=== PATIENT | male | born 1945 | race Caucasian/White ===

== ENCOUNTER 2019-10-07 16:09 | Outpatient (CLI) | payer MEDICARE, OTHER, SELFPAY | END 2019-10-07 16:10 | disposition home or self-care (01) | LOC: CHSLAB 16:15 | PROVIDERS: PCP Family Medicine; Visit Provider Specialist | DX: C44.02 Squamous cell carcinoma of skin of lip (principal) | CPT/HCPCS: 88305 ==

== ENCOUNTER 2019-11-18 12:39 | Outpatient (CLI) | payer MEDICARE, OTHER, SELFPAY | END 2019-11-18 12:40 | disposition home or self-care (01) | PROVIDERS: PCP Family Medicine; Visit Provider Specialist | DX: D03.59 Melanoma in situ of other part of trunk (principal) | CPT/HCPCS: 88305; 88342 ==

== ENCOUNTER 2020-10-22 20:02 | Emergency (ER) | payer MEDICARE, OTHER, SELFPAY ==
--- NOTE | ~2020-10-22 | CT_ITS ---
EXAMINATION: CT abdomen pelvis wo con DATE: 10/22/2020 21:36 INDICATION: Jaundice, abdominal distention TECHNIQUE: Computed tomography (CT) of the abdomen and pelvis was performed without intravenous contr ast. The dose-length product (DLP) was 1194.38 mGy-cm. Automated exposure control and iterative recon struction technique were employed. COMPARISON: None FINDINGS: There are trace pleural effusions. Rounded atelectasis is noted in the left lower lobe. The heart size is normal. There is bilateral gynecomastia. The liver is small and demonstrates a nodular contour. Although limited by the absence of intravenous contrast, there appears to be a mass in the head of the pancreas. There is intrahepatic and extrahepatic biliary dilatation. There is marked dist ention of the gallbladder. Cholelithiasis is noted although no choledocholithiasis is seen. There is a 3.4 cm subcapsular lesion in liver segment VIII with peripheral calcification. There is a questiona ble 1.2 cm nodule of the right adrenal gland. Nonobstructing stones of the right kidney measure up to 9 mm. Nonobstructing stones of the left kidney measure up to 10 mm. No pathologically enlarged abdom inal or pelvic lymph nodes are identified. There is an umbilical hernia containing fat. There are com pression fractures of T11, L3, and L5. IMPRESSION: 1. Possible mass in the head of the pancreas with intrahepatic and extrahepatic biliary dilatation as well as gallbladder distention. Evaluation is limited by the absence of intravenous contrast. 2. Cirrhosis with portal hypertension. 3. Indeterminate mass of liver segment VIII which may be benign or malignant. 4. Nonobstructing bilateral nephrolithiasis. Reviewed, dictated and finalized at location A.
[2020-10-22 20:23] VITALS: BP 138/80; PULSE 67; RESP 16; TEMP 36.3; O2SAT 98
--- NOTE | 2020-10-22 20:56 | ECG_ITS ---
Measurements Intervals [place] Rate: 62 P: -16 DE: 205 QRS: -10 QRSD: 96 T: 18 QT: 410 QTc: 419 Interpretive Statements SINUS RHYTHM ATRIAL PREMATURE COMPLEX INCOMPLETE RIGHT BUNDLE BRANCH BLOCK BORDERLINE ECG Electronically Signed On 10-23-2020 5:56:17 CDT by Bruce Quezada D.O.
--- NOTE | 2020-10-22 21:07 | ED.ABDPAIN ---
HPI - Abdominal Pain General Chief Complaint: Abdominal Pain Stated Complaint: yellowing in eyes, yellowing onstomach,orange urin Source: patient and family Mode of arrival: ambulatory Limitations: no limitations History of Present Illness HPI narrative: Pt presents to the ED with complaints of yellowing of eyes and skin. Pt had a long history of etoh abuse. ABout 10 years ago he was using very heavily, but quit after being in liver failure. He was clean for about 5 years. Then he started to gradually drink a couple of drinks a night. Then in fall his committed suicide and he began to drink heavily again. About a week ago he mnoticed that his skin and eyes were turning yellow. He had his last drink a week ago but the yellowing is persistantly gettting worse. He is not having any pain at all, but is concerned due to his color. Over the last 1 year he has lsot over 80 lbs. He denies blood in stools or vomiting. HE is eating ok, but not exceptional. Pertinent past history: none Location: none Radiation: none Migration to: no migration Exacerbating factors: nothing Relieving factors: nothing Context: confirms history of similar episodes Associated symptoms: nausea Related Data Home Medications Medication Instructions Recorded Confirmed folic acid 1 mg PO DAILY 10/22/20 10/22/20 nadolol 40 mg PO DAILY 10/22/20 10/22/20 spironolactone 100 mg PO DAILY 10/22/20 10/22/20 Allergies Allergy/AdvReac Type Severity Reaction Status Date / Time No Known Allergies Allergy Verified 10/22/20 20:23 Review of Systems Review of Systems: All systems reviewed & are unremarkable except as noted in HPI and below [facility] Past Medical History Medical History Femur fracture HTN (hypertension) Liver failure Social History Social History (Updated 10/22/20 @ 21:16 by Cecilia Hurt MD) Smoking status: Never smoker Alcohol intake: former Alcohol use details: see HPI- currently not drinking for 1 week Substance use: never Living arrangements: alone Gender identity (if verbalized by the patient): Male Exam Const: General: no acute distress, alert and ill appearing (jaundice in eyes, and on skin obvious. ) Orientation/consciousness: patient oriented x3 HENMT: Mouth: Yes moist mucous membranes Throat: posterior oropharynx normal Eyes: Conjunctivae: abnormal conjunctivae (jaundiced) Pupils: Equal, round and reactive pupils present EOM: EOMs intact bilaterally Neck: Neck: normal visual inspection Chest: Chest palpation & inspection: normal inspection of the chest Resp: Effort & Inspection: normal respiratory effort Auscultation: clear to auscultation bilaterally Cardio: Rate: regular rate Rhythm: regular rhythm GI: GI Palp: Yes Soft to palpation, No Tenderness to palpation present (GI), No Guarding due to palpation present (GI), No Rigid due to palpation, No Hernia present, No Palpable mass present and No Rebound tenderness present Auscultation: normal bowel sounds Other: liver enlargement Back/Spine/Pelvis: Back: no CVA tenderness Skin: General skin exam: jaundice Neuro: General: patient oriented x3, moves all extremities and CN's II-XI intact bilaterally Speech: normal speech Gait exam (Neuro): Normal gait present Other: pt is in normal state of mind Extrem: General: normal to inspection Psych: Mental Status: mental status grossly normal Course Course Emergency Course: patient and family informed of ct findings, and they requested [facility]. I have placed call and was told that there is a waitlist at this time. family aware, Dr Lackey accepts patient. on a bed hold, so we will move pt to floor for comfort Vital Signs Vital signs: Vital Signs Temperature 36.3 C L 10/22/20 20:23 Pulse Rate 67 10/22/20 20:23 Respiratory Rate 16 10/22/20 20:23 Blood Pressure 138/80 10/22/20 20:23 Pulse Oximetry 98
[2020-10-22 21:18] LABS: Basophils Absolute Auto 0.04 K/mm3 (0.00-0.10); Basophils Percent Auto 0.5 % (0.0-1.0); Eosinophils Absolute Auto 0.07 K/mm3 (0.02-0.50); Eosinophils Percent Auto 0.9 % (1.0-6.0); Hematocrit 38.3 % (37.0-46.0); Hemoglobin 13.4 g/dL (12.4-15.3); Immature Granulocyte Absolute 0.05 K/mm3 (0.00-0.00); Immature Granulocyte Percent A 0.6 % (0.0-0.0); Lymphocytes Absolute Auto 0.72 K/mm3 (1.10-4.50); Mean Corpuscular Hemoglobin 33.1 pg (27.0-31.0); Mean Corpuscular Volume 94.6 fL (78.0-102.0); Mean Platelet Volume 10.2 fl (8.7-11.0); Monocytes Absolute Auto 0.97 K/mm3 (0.10-0.90); Monocytes Percent Auto 12.1 % (2.0-11.0); Neutrophils Absolute Auto 6.2 K/mm3 (1.7-7.2); Neutrophils Percent Auto 76.9 % (50.0-70.0); Platelet Count Result 164 K/mm3 (150-420); Red Blood Count 4.05 M/mm3 (4.70-6.10); Red Cell Distribution Width 13.7 % (11.6-14.4)
[2020-10-22 21:32] LABS: INR 1.3; Partial Thromboplastin Time 27.2 SEC (23.90-30.70); Prothrombin Time 13.5 Seconds (9.50-12.10)
[2020-10-22 21:37] LABS: Alanine Aminotransferase 124 U/L (16-63); Albumin Level 3.2 g/dL (3.4-5.0); Alkaline Phosphatase 225 U/L (46-116); Anion Gap 11 mmol/L (8-16); Aspartate Amino Transferase 97 U/L (15-37); Bilirubin,Total 23.3 mg/dL (0.00-1.00); Blood Urea Nitrogen 24 mg/dL (7-18); Calcium 10.1 mg/dL (8.5-10.1); Carbon Dioxide 23 mmol/L (21-32); Chloride 97 mmol/L (98-108); Estimated CRCL calculation 77 ml/min; Estimated Glomerular Filt Rate > 60; Glucose 155 mg/dL (70-99); Lipase 117 U/L (73-393); Osmolality Calculated 279 mOsm/kg (285-295); Potassium 4.3 mmol/L (3.5-5.1); Sodium 131 mmol/L (136-145); Total Protein 6.5 g/dL (6.4-8.2)
[2020-10-22 21:38] LABS: Bilirubin Direct > 16.0 mg/dL (0-0.2)
--- NOTE | 2020-10-22 22:14 | PC.NURSE ---
[place] transfer line contacted at [phone]
[2020-10-22 22:53] VITALS: BP 127/67; PULSE 62; RESP 20; TEMP 36.3; O2SAT 100
[2020-10-22 23:10] VITALS: BP 150/71; PULSE 70; RESP 20; TEMP 37; O2SAT 100
--- NOTE | 2020-10-22 23:32 | PC.NURSE ---
patient to floor, ER hold. [facility] called stated be over 24hrs before bed. Report to [facility] 2nd floor
[2020-10-22 23:43] LABS: SARS-CoV-2 Ag Negative (Negative)
[2020-10-23 07:45] VITALS: BP 111/66; PULSE 68; RESP 18; TEMP 36.8; O2SAT 98
[2020-10-23 12:40] VITALS: BP 117/67; PULSE 76; RESP 18; TEMP 37.2; O2SAT 99
[2020-10-23 15:54] VITALS: BP 113/65; PULSE 67; RESP 16; TEMP 36.7; O2SAT 97
--- NOTE | 2020-10-23 15:55 | PC.NURSE ---
Patient in bed with HOB elevated. Alert and oriented x4, cooperative with care. Answers questions readily. Denies pain. Body color orange and eyes yellow. Belongings and call light within reach.
--- NOTE | 2020-10-23 16:52 | PC.NURSE ---
Resting quietly watching TV. Call light in reach. Able to make needs known.
--- NOTE | 2020-10-23 17:45 | PC.NURSE ---
Patient in bed talking with a visitor. Patient ate 25% of supper, fed self. Nurse assisted iin filling out tomorrow's menu. Denies pain. Color continues to be jaundice.
--- NOTE | 2020-10-23 19:27 | PC.NURSE ---
Call received from floor that pt. has a bed at [place] for transfer. ERP informed.
--- NOTE | 2020-10-23 20:19 | PC.NURSE ---
1900 Brittanie from [place] Transfer line called and notified nurse that patient has a bed assignment. Patient to go to Room 5490. Daughter notified. notified of room availability.
--- NOTE | 2020-10-23 20:23 | PC.NURSE ---
1919 Nurse attempted to call Aurelia to give report. Receiving nurse in report. This nurse to call back.
--- NOTE | 2020-10-23 20:24 | PC.NURSE ---
2000 Nurse called and gave Aurelia Alfredo receiving nurse, report.
--- NOTE | 2020-10-23 20:24 | PC.NURSE ---
2015 [facility] notified of need for transfer to [facility] in [place].
[2020-10-23 20:31] VITALS: BP 113/70; PULSE 68; RESP 18; TEMP 36.7; O2SAT 96
--- NOTE | 2020-10-23 20:38 | PC.NURSE ---
2019 Patient assisted in getting ready for transfer. Skin warm and dry, continues to have an orange appearance. Eyes remain yellow. Denies pain, SOB, N/V. Patient states he feels bloated in upper abd. Telemetry unit removed. Patient up in chair awaiting ambulance.
--- NOTE | 2020-10-23 20:41 | PC.NURSE ---
2030 [facility] here to transfer patient to [place].
== END 2020-10-23 20:36 | disposition short-term general hospital (02) ==
LOC: CHSED 22:53 → CHS2ND 23:03
PROVIDERS: Emergency Provider Emergency Medicine; PCP Family Medicine
DX: R17 Unspecified jaundice (principal); I10 Essential (primary) hypertension; Z20.822 Contact with and (suspected) exposure to COVID-19
CPT/HCPCS: 36415; 74176; 80053; 82248; 83690; 85025; 85610; 85730; 87426; 93005; 99285; C9803